=== PATIENT | female | born 1970 | race Two or more races ===

== ENCOUNTER 2020-02-27 19:23 | Inpatient (IN) | payer MEDICAID, OTHER ==
[~2020-02-27] VITALS: Ht 149.9 cm; Wt 52.5 kg
[~2020-02-27 19:23] MED LIST: DEXT30TA
[2020-02-27] MEDS ORDERED: methylPREDNISolone SOD SUCC 125 MG/2 ML VL IV ONE (19:45)
[2020-02-27] MEDS ORDERED: IPRATROPIUM BROM 0.5 MG/2.5ML INH SOL NEB ONE (19:45)
[2020-02-27 20:17] LABS: Hematocrit 38.9 % (36.0-46.0); Hemoglobin 13.3 g/dL (12.2-16.2); Mean Corpuscular Hgb Conc. 34.2 g/dL (32.0-36.0); Mean Corpuscular Volume 90.5 fL (80.0-100.0); Platelet Count (auto) 233 10^3/uL (140-450); Red Cell Distribution Width 13.1 % (11.8-14.3); White Blood Cell 5.3 10^3/uL (4.4-10.8)
[2020-02-27 20:19] LABS: Band Neutrophils % (manual) 0; Basophils % (manual) 0 (0.0-2.0); Blast Cells 0; Metamyelocytes % 0; Myelocytes % 0; Promyelocytes % 0; Reactive Lymphocytes 0
[2020-02-27] MEDS ORDERED: ALBUTEROL SULF 2.5 MG/0.5ML(0.5%) NEB SOLN ONE (20:27)
[2020-02-27] MEDS ORDERED: IPRATROPIUM BROM 0.5 MG/2.5ML INH SOL ONE (20:27)
[2020-02-27 20:31] LABS: Alanine Aminotransferase 20 U/L (13-56); Albumin 3.4 g/dL (3.4-5.0); Anion Gap 6 (5-15); Aspartate Aminotransferase 15 U/L (15-37); BUN/Creatinine Ratio 6.9; Blood Urea Nitrogen 4 mg/dL (7-18); Calcium 7.9 mg/dL (8.5-10.1); Carbon Dioxide 28 mmol/L (21-32); Chloride 109 mmol/L (98-107); GFR African American 142 mL/min; GFR Non-African American 117 mL/min; Glucose 86 mg/dL (74-106); Sodium 143 mmol/L (136-145)
[2020-02-27 20:36] LABS: Alkaline Phosphatase 92 U/L (45-117); Bilirubin, Total 0.4 mg/dL (0.2-1.0); Total Protein 6.8 g/dL (6.4-8.2)
[2020-02-27 20:58] LABS: Eosinophils % (manual) 18 (0-7); Lymphocytes % (manual) 47 (10.0-50.0); Monocytes % (manual) 5 (0-12)
[2020-02-27] MEDS ORDERED: NITROGLYCERIN 0.4 MG SL TAB SL PRN (22:45)
[2020-02-27] MEDS ORDERED: TEMAZEPAM 15 MG CAP PO PRN (22:45)
[2020-02-27] MEDS ORDERED: ACETAMINOPHEN 325 MG TAB PO PRN (22:45)
[2020-02-27] MEDS ORDERED: MORPHINE SULF INJ 2 MG/ML SYRINGE 1ML IV PRN (22:45)
[2020-02-27] MEDS ORDERED: POTASSIUM CHL 20 Meq TABLET PO ONE (22:45)
[2020-02-27] MEDS ORDERED: AZITHROMYCIN 500MG/ 250ML 250 ML IV ONE (22:45)
[2020-02-27] MEDS ORDERED: ONDANSETRON HCL 4 MG/2 ML VIAL IV PRN (22:45)
[2020-02-28] MEDS: ALBUTEROL SULF 2.5 MG/0.5ML(0.5%) NEB SOLN NEB SCH ×4 (06:00→21:17)
[2020-02-28] MEDS: IPRATROPIUM BROM 0.5 MG/2.5ML INH SOL NEB SCH ×4 (06:00→21:17)
[2020-02-28 06:04] LABS: Basophils # (auto) 0 10 ^3/uL (0-0.2); Basophils % (auto) 0.2 % (0.0-2.0); Eosinophils # (auto) 0 10 ^3/uL (0-0.8); Eosinophils % (auto) 0.1 % (0.0-7.0); Hematocrit 37.3 % (36.0-46.0); Lymphocytes # (auto) 0.4 10 ^3/uL (0.4-5.4); Lymphocytes % (auto) 8.7 % (10.0-50.0); Mean Corpuscular Hemoglobin 31.5 pg (28.0-32.0); Mean Corpuscular Hgb Conc. 34.9 g/dL (32.0-36.0); Mean Corpuscular Volume 90.3 fL (80.0-100.0); Monocytes # (auto) 0 10 ^3/uL (0-1.3); Neutrophils # (auto) 4.1 10 ^3/uL (1.6-8.6); Platelet Count (auto) 236 10^3/uL (140-450); Red Blood Cells 4.12 10^6/uL (4.0-5.20); Red Cell Distribution Width 13.3 % (11.8-14.3); White Blood Cell 4.6 10^3/uL (4.4-10.8)
[2020-02-28 06:22] LABS: BUN/Creatinine Ratio 6.3; Calcium 7.9 mg/dL (8.5-10.1); Potassium 3.8 mmol/L (3.5-5.1)
[2020-02-28 09:53] VITALS: BP 108/73
[2020-02-28] MEDS ORDERED: methylPREDNISolone SOD SUCC 125 MG/2 ML VL IV SCH (10:00)
[2020-02-28] MEDS ORDERED: POTASSIUM CHL 20 Meq TABLET PO SCH (10:00)
[2020-02-28] MEDS: AZITHROMYCIN 500MG/ 250ML 250 ML IV SCH (10:21)
[2020-02-28] MEDS: ENOXAPARIN SOD 40 MG/0.4 ML SYRINGE SC SCH (10:24)
[2020-02-28] MEDS: FAMOTIDINE 20 MG TAB PO SCH (10:24)
[2020-02-28 10:49] VITALS: BP 108/73
[2020-02-28 16:23] VITALS: BP 132/72
[2020-02-28 22:00] VITALS: BP 112/68
[2020-02-28] MEDS: methylPREDNISolone SOD SUCC 40 MG/ML VL IV SCH (22:13)
[2020-02-29 05:00] VITALS: BP 99/62
[2020-02-29 08:00] VITALS: BP 101/56
[2020-02-29] MEDS: ALBUTEROL SULF 2.5 MG/0.5ML(0.5%) NEB SOLN NEB SCH ×4 (08:50→20:00)
[2020-02-29] MEDS: IPRATROPIUM BROM 0.5 MG/2.5ML INH SOL NEB SCH ×4 (08:50→20:00)
[2020-02-29] MEDS ORDERED: ALBUTEROL SULF 2.5 MG/0.5ML(0.5%) NEB SOLN NEB ONE (10:00)
[2020-02-29] MEDS: methylPREDNISolone SOD SUCC 40 MG/ML VL IV SCH ×2 (10:40→21:42)
[2020-02-29] MEDS: FAMOTIDINE 20 MG TAB PO SCH (10:41)
[2020-02-29] MEDS: AZITHROMYCIN 500MG/ 250ML 250 ML IV SCH (10:41)
[2020-02-29] MEDS: ENOXAPARIN SOD 40 MG/0.4 ML SYRINGE SC SCH (10:41)
[2020-02-29] MEDS ORDERED: levoFLOXacin 500 MG TAB PO ONE (14:15)
[2020-02-29 16:00] VITALS: BP 110/70
[2020-02-29 22:08] VITALS: BP 113/72
[2020-03-01 05:00] VITALS: BP 108/63
[2020-03-01] MEDS: IPRATROPIUM BROM 0.5 MG/2.5ML INH SOL NEB SCH ×2 (06:00→12:00)
[2020-03-01] MEDS: ALBUTEROL SULF 2.5 MG/0.5ML(0.5%) NEB SOLN NEB SCH ×2 (06:00→12:00)
[2020-03-01 08:00] VITALS: BP 105/66
[2020-03-01] MEDS: FAMOTIDINE 20 MG TAB PO SCH (09:48)
[2020-03-01] MEDS: methylPREDNISolone SOD SUCC 40 MG/ML VL IV SCH (09:50)
[2020-03-01] MEDS: ENOXAPARIN SOD 40 MG/0.4 ML SYRINGE SC SCH (09:50)
[2020-03-01] MEDS ORDERED: levoFLOXacin 500 MG TAB PO SCH (10:00)
[2020-03-01] MEDS: guaiFENesin-CODEINE Liq 5 ML UD PO SCH ×2 (10:42→12:00)
[2020-03-01] MEDS ORDERED: ALB5IS NEB (10:47)
[2020-03-01 12:17] VITALS: BP 105/66
== END 2020-03-01 14:00 | disposition home or self-care (01) | DRG 139 ==
LOC: ER 19:23 → TELE 19:24 → TELE-WESTW 02-28 09:05
PROVIDERS: ADMIT Nurse Practitioner; ATTEND Internal Medicine Nephrology
DX: J18.9 Pneumonia, unspecified organism (principal); J45.901 Unspecified asthma with (acute) exacerbation; E87.6 Hypokalemia; E66.9 Obesity, unspecified; Z20.822 Contact with and (suspected) exposure to COVID-19; J96.01 Acute respiratory failure with hypoxia; Z68.26 Body mass index [BMI] 26.0-26.9, adult
CPT/HCPCS: 36415; 71045; 80048; 80053; 82728; 83605; 84484; 85007; 85025; 85027; 85379; 87426; 93005; 94640; 94644; 96374; G0378

== ENCOUNTER 2020-07-05 21:55 | Emergency (ER) | payer SELFPAY ==
[~2020-07-05] VITALS: Ht 149.9 cm; Wt 54.4 kg
[~2020-07-05 21:55] MED LIST changes: +ALB5IS NEB
[2020-07-05 21:58] VITALS: BP 151/86
== END 2020-07-05 22:41 | disposition left against medical advice (07) ==
LOC: ER 21:55
DX: J45.901 Unspecified asthma with (acute) exacerbation (principal); Z53.21 Procedure and treatment not carried out due to patient leaving prior to being seen by health care provider

== ENCOUNTER 2020-11-26 14:37 | Inpatient (IN) | payer MEDICAID ==
[~2020-11-26] VITALS: Ht 149.9 cm; Wt 57.9 kg
[2020-11-26] MEDS ORDERED: IPRATROPIUM BROM 0.5 MG/2.5ML INH SOL HHN ONE (16:30)
[2020-11-26] MEDS ORDERED: methylPREDNISolone SOD SUCC 125 MG/2 ML VL IV ONE (16:30)
[2020-11-26] MEDS ORDERED: ALBUTEROL SULF 2.5 MG/0.5ML(0.5%) NEB SOLN HHN ONE (16:30)
[2020-11-26 16:43] LABS: Basophils # (auto) 0.1 10 ^3/uL (0-0.2); Basophils % (auto) 1.5 % (0.0-2.0); Eosinophils # (auto) 0.8 10 ^3/uL (0-0.8); Eosinophils % (auto) 11.3 % (0.0-7.0); Hematocrit 43.6 % (36.0-46.0); Hemoglobin 14.8 g/dL (12.2-16.2); Lymphocytes # (auto) 1.1 10 ^3/uL (0.4-5.4); Lymphocytes % (auto) 15.9 % (10.0-50.0); Mean Corpuscular Hemoglobin 31.2 pg (28.0-32.0); Mean Corpuscular Volume 91.8 fL (80.0-100.0); Monocytes # (auto) 0.5 10 ^3/uL (0-1.3); Monocytes % (auto) 7.2 % (0.0-12.0); Neutrophils # (auto) 4.5 10 ^3/uL (1.6-8.6); Neutrophils % (auto) 64.1 % (37.0-80.0); Red Blood Cells 4.75 10^6/uL (4.0-5.20); Red Cell Distribution Width 13.4 % (11.8-14.3)
[2020-11-26 17:07] LABS: Albumin 3.7 g/dL (3.4-5.0); Anion Gap 4 (5-15); Blood Urea Nitrogen 5 mg/dL (7-18); Calcium 8.7 mg/dL (8.5-10.1); Carbon Dioxide 30 mmol/L (21-32); Chloride 107 mmol/L (98-107); Glucose 99 mg/dL (74-106); Potassium 3.8 mmol/L (3.5-5.1); Sodium 141 mmol/L (136-145)
[2020-11-26 17:12] LABS: Alanine Aminotransferase 25 U/L (13-56); Alkaline Phosphatase 91 U/L (45-117); Aspartate Aminotransferase 17 U/L (15-37); BUN/Creatinine Ratio 7.9; Bilirubin, Total 0.2 mg/dL (0.2-1.0); GFR African American 129 mL/min; GFR Non-African American 106 mL/min; Total Protein 7.9 g/dL (6.4-8.2)
[2020-11-26] MEDS ORDERED: HYDROcodone-ACET 5/325MG TAB PO PRN (19:00)
[2020-11-26] MEDS ORDERED: MORPHINE SULFATE INJECTION 2 MG/ML SYRG IV PRN ×2 (19:00)
[2020-11-26] MEDS ORDERED: ONDANSETRON HCL 4 MG/2 ML VIAL IV PRN (19:00)
[2020-11-26] MEDS ORDERED: NITROGLYCERIN 0.4 MG SL TAB SL PRN (19:00)
[2020-11-26] MEDS ORDERED: MAGNESIUM SULFATE 1GM/100ML 100 ML IV ONE (19:00)
[2020-11-26] MEDS ORDERED: ACETAMINOPHEN 500 MG TAB PO PRN (19:00)
[2020-11-26] MEDS ORDERED: ALBUTEROL SULF 2.5 MG/0.5ML(0.5%) NEB SOLN ONE (21:39)
[2020-11-26] MEDS ORDERED: IPRATROPIUM BROM 0.5 MG/2.5ML INH SOL ONE (21:39)
[2020-11-26] MEDS ORDERED: BUDESONIDE (INHALATION) 0.5 MG/2 ML NEB ONE (21:39)
[2020-11-26] MEDS: IPRATROPIUM BROM 0.5 MG/2.5ML INH SOL NEB SCH (22:00)
[2020-11-26] MEDS: ALBUTEROL SULF 2.5 MG/0.5ML(0.5%) NEB SOLN NEB SCH (22:00)
[2020-11-26] MEDS: BUDESONIDE (INHALATION) 0.5 MG/2 ML NEB NEB SCH (22:00)
[2020-11-27] MEDS: methylPREDNISolone SOD SUCC 125 MG/2 ML VL IV SCH ×2 (03:47→10:04)
[2020-11-27] MEDS: SODIUM CHLORIDE 0.9% 1,000 ML IV SCH ×3 (03:47→15:00)
[2020-11-27 04:51] VITALS: BP 129/69
[2020-11-27 05:00] VITALS: BP 129/69
[2020-11-27] MEDS: BUDESONIDE (INHALATION) 0.5 MG/2 ML NEB NEB SCH ×2 (06:42→19:07)
[2020-11-27] MEDS: ALBUTEROL SULF 2.5 MG/0.5ML(0.5%) NEB SOLN NEB SCH ×6 (06:43→21:39)
[2020-11-27] MEDS: IPRATROPIUM BROM 0.5 MG/2.5ML INH SOL NEB SCH ×6 (06:43→21:39)
[2020-11-27 09:00] VITALS: BP 127/72
[2020-11-27] MEDS ORDERED: AZITHROMYCIN 250 MG TAB PO SCH (10:00)
[2020-11-27 13:00] VITALS: BP 129/58
[2020-11-27 17:00] VITALS: BP 142/96
[2020-11-27 21:30] VITALS: BP 115/54
[2020-11-27] MEDS: methylPREDNISolone SOD SUCC 40 MG/ML VL IV SCH (22:23)
[2020-11-28 05:00] VITALS: BP 100/48
[2020-11-28] MEDS: IPRATROPIUM BROM 0.5 MG/2.5ML INH SOL NEB SCH ×5 (06:49→22:11)
[2020-11-28] MEDS: ALBUTEROL SULF 2.5 MG/0.5ML(0.5%) NEB SOLN NEB SCH ×5 (06:49→22:11)
[2020-11-28 08:00] VITALS: BP 129/59
[2020-11-28] MEDS: methylPREDNISolone SOD SUCC 40 MG/ML VL IV SCH ×2 (09:24→22:16)
[2020-11-28] MEDS: BUDESONIDE (INHALATION) 0.5 MG/2 ML NEB NEB SCH ×2 (10:00→19:37)
[2020-11-28] MEDS ORDERED: IOHEXOL 300 MG/ML 100ML BOTTLE IJ ONE (10:05)
[2020-11-28 12:00] VITALS: BP 139/90
[2020-11-28 16:00] VITALS: BP 139/78
[2020-11-28 22:00] VITALS: BP 125/65
[2020-11-28] MEDS: DOCUSATE SOD 100 MG CAP PO SCH (22:16)
[2020-11-29 04:56] VITALS: BP 119/73
[2020-11-29] MEDS: IPRATROPIUM BROM 0.5 MG/2.5ML INH SOL NEB SCH ×2 (07:15→11:09)
[2020-11-29] MEDS: BUDESONIDE (INHALATION) 0.5 MG/2 ML NEB NEB SCH (07:15)
[2020-11-29] MEDS: ALBUTEROL SULF 2.5 MG/0.5ML(0.5%) NEB SOLN NEB SCH ×2 (07:15→11:09)
[2020-11-29 08:49] VITALS: BP 133/86
[2020-11-29] MEDS: DOCUSATE SOD 100 MG CAP PO SCH (09:15)
[2020-11-29] MEDS: methylPREDNISolone SOD SUCC 40 MG/ML VL IV SCH (09:15)
[2020-11-29 12:34] VITALS: BP 121/71
[2020-11-29 13:00] VITALS: BP 121/71
== END 2020-11-29 13:20 | disposition home or self-care (01) | DRG 133 ==
LOC: ER 14:37 → TELE 18:56 → TELE-WESTW 11-27 04:04
PROVIDERS: ADMIT Nurse Practitioner Acute Care; ATTEND Internal Medicine Nephrology
DX: J96.01 Acute respiratory failure with hypoxia (principal); J45.42 Moderate persistent asthma with status asthmaticus; D17.9 Benign lipomatous neoplasm, unspecified; I10 Essential (primary) hypertension; Z20.822 Contact with and (suspected) exposure to COVID-19; Z82.0 Family history of epilepsy and other diseases of the nervous system; Z82.49 Family history of ischemic heart disease and other diseases of the circulatory system; Z82.62 Family history of osteoporosis; Z83.3 Family history of diabetes mellitus; Z86.16 Personal history of COVID-19
CPT/HCPCS: 36415; 71046; 74177; 76775; 80053; 83880; 84484; 85025; 87426; 87804; 93005; 93306; 94640; 94644; 96365; 96367; 99291; G0378